=== PATIENT | female | born 1970 | race Caucasian/White ===

== ENCOUNTER 2017-04-23 17:09 | Observation (INO) | payer MEDICARE, MEDICAID ==
[~2017-04-23] VITALS: Ht 170.2 cm; Wt 73.0 kg
[~2017-04-23 17:09] MED LIST: ABILIFY 10MG TA10 MG PO; AMOXICILLIN 50500 MG PO; BUPROPION HCL150 MG PO; DEPAKOTE ER 50500 MG PO; DEPAKOTE250 MG PO; DESYREL 100MG100 MG; DSS100 MG PO; GEODON60 MG PO; MIRTAZAPINE7.5 MG PO; NORCO 325 MG-51 TAB PO; PROZAC40 MG PO; RISPERDAL2 MG PO; SEROQUEL100 MG PO; WELLBUTRIN XL300 M1 PO; ZIPRASIDONE; ZOLOFT; [UNRECOGNIZED DRUG - OTHER] PO
[2017-04-23 17:58] LABS: ADJUSTED CALCIUM 8.8 mg/dL (8.4-10.2); ALANINE AMINOTRANSFERASE 24 U/L (9-52); ALBUMIN 3.7 gm/dL (3.5-5.0); ALKALINE PHOSPHATASE 58 U/L (50-136); ANION GAP 8 mmol/L (7-16); BILIRUBIN,TOTAL 0.4 mg/dL (0.0-1.0); BLOOD UREA NITROGEN 5 mg/dL (7-17); CALCIUM 8.6 mg/dL (8.4-10.2); CARBON DIOXIDE 26 mmol/L (22-30); CHLORIDE 103 mmol/L (98-107); CREATININE, serum 0.66 mg/dL (0.52-1.25); GLUCOSE 83 mg/dL (74-106); POTASSIUM 3.7 mmol/L (3.4-5.0); SODIUM 137 mmol/L (137-145); TOTAL PROTEIN 6.5 gm/dL (6.4-8.2)
[2017-04-23 18:01] LABS: ACETAMINOPHEN < 10 ug/mL (10-30); BASO # 0.1 (0.0-0.2); BASO % 0.6 % (0.0-2.0); EOS # 0.1 (0.0-0.7); EOS % 1.4 % (0-4.0); GRAN # 5.7 (1.4-6.5); GRAN % 65.5 % (42.2-75.2); LYMPH # 2.2 (1.2-3.4); LYMPH % 25.5 % (20.0-51.0); MEAN CELL VOLUME 91 fl (80.0-100.0); MEAN CORPUSCULAR HEMOGLOBIN 31 pg (27.0-31.0); MEAN CORPUSCULAR HGB CONC 34 g/dl (33.0-37.0); MEAN PLATELET VOLUME 9.8 fl (7.4-10.4); MONO # 0.6 (0.1-0.6); MONO % 6.8 % (1.7-9.3); PLATELET COUNT 233 K/mm3 (130-400); RED BLOOD COUNT 3.89 M/mm3 (4.10-5.30); REDCELL DISTRIBUTION WIDTH-CV 13.1 % (11.5-14.5); SALICYLATE < 1.0 mg/dL; WHITE BLOOD COUNT 8.6 K/mm3 (4.8-10.8)
[2017-04-23 18:02] LABS: HEMATOCRIT 35.4 % (37.0-47.0)
[2017-04-24 03:19] LABS: AMPHETAMINE URINE NEGATIVE; BARBITURATES URINE NEGATIVE; BENZODIAZEPINES URINE NEGATIVE; BUPRENORPHINE URINE NEGATIVE; METHADONE URINE NEGATIVE; OPIATES URINE NEGATIVE; OXYCODONE URINE NEGATIVE; PHENCYCLIDINE URINE NEGATIVE; PROPOXYPHENE URINE NEGATIVE; THC CANNABINOIDS URINE NEGATIVE
[2017-04-24 08:30] VITALS: BP 134/83; PULSE 83
[2017-04-24 09:02] VITALS: BP 134/83; PULSE 83
[2017-04-25 01:29] VITALS: O2SAT 94
[2017-04-25 01:36] VITALS: BP 112/62; PULSE 85; TEMP 98.1
[2017-04-25 07:31] VITALS: BP 105/72; PULSE 78; TEMP 98
== END 2017-04-25 08:10 ==
LOC: COL.ER 17:09 → ICU 04-24 03:05
PROVIDERS: Emergency Medicine
DX: F25.0 Schizoaffective disorder, bipolar type (principal); F41.0 Panic disorder [episodic paroxysmal anxiety]
CPT/HCPCS: G0378

== ENCOUNTER 2019-06-18 11:37 | Emergency (ER) | payer MEDICARE, MEDICAID ==
[2007-02-23 18:08] VITALS: BP 109/64
[~2019-06-18] VITALS: Ht 170.2 cm; Wt 90.9 kg
[2019-06-18 12:26] LABS: BASO % 0.3 % (0.0-2.0); EOS % 0.2 % (0-4.0); GRAN # 5.6 (1.4-6.5); GRAN % 64.6 % (42.2-75.2); HEMATOCRIT 40.9 % (37.0-47.0); LYMPH # 2.3 (1.2-3.4); LYMPH % 26.2 % (20.0-51.0); MEAN CELL VOLUME 91 fl (80.0-100.0); MEAN CORPUSCULAR HEMOGLOBIN 31 pg (27.0-31.0); MEAN CORPUSCULAR HGB CONC 34 g/dl (33.0-37.0); MONO # 0.7 (0.1-0.6); MONO % 8.2 % (1.7-9.3); PLATELET COUNT 216 K/mm3 (130-400); RED BLOOD COUNT 4.52 M/mm3 (4.10-5.30); REDCELL DISTRIBUTION WIDTH-CV 12.7 % (11.5-14.5)
[2019-06-18] MEDS ORDERED: GEODON80 MG PO (12:39)
[2019-06-18] MEDS ORDERED: COGENTIN .0.5 MG/TAB PO (12:40)
[2019-06-18 12:42] LABS: ALANINE AMINOTRANSFERASE < 6 U/L (9-52); ALKALINE PHOSPHATASE 62 U/L (50-136); ANION GAP 10 mmol/L (7-16); AST,SGOT 21 U/L (15-37); BILIRUBIN,TOTAL 0.3 mg/dL (0.0-1.0); BLOOD UREA NITROGEN 13 mg/dL (7-17); CALCIUM 9.2 mg/dL (8.4-10.2); CARBON DIOXIDE 24 mmol/L (22-30); CHLORIDE 100 mmol/L (98-107); CREATININE, serum 0.77 (0.52-1.25); GLUCOSE 83 mg/dL (74-106); POTASSIUM 4.2 mmol/L (3.4-5.0); SODIUM 134 mmol/L (137-145); TOTAL PROTEIN 7.2 gm/dL (6.4-8.2)
[2019-06-18] MEDS ORDERED: WELLBUTRIN XL150 MG PO (12:43)
[2019-06-18] MEDS ORDERED: TIROSINT25 MC1 PO (12:44)
[2019-06-18 12:45] LABS: ACETAMINOPHEN < 10 ug/mL (10-30); ALCOHOL(ethanol),MEDICAL < 10 mg/dL; SALICYLATE < 1.0 mg/dL
[2019-06-18 13:43] LABS: COLLECTION METHOD CLEAN CATCH
[2019-06-18 14:02] LABS: MUCOUS Present /lpf; PH 5 (5-8); URINE APPEARANCE Hazy; URINE BACTERIA Rare /hpf; URINE BILIRUBIN Negative (NEGATIVE); URINE BLOOD Negative (NEGATIVE); URINE COLOR Straw; URINE GLUCOSE Negative (NEGATIVE); URINE KETONE Trace (NEGATIVE); URINE LEUKOCYTE ESTERASE Negative (NEGATIVE); URINE NITRATE Negative (NEGATIVE); URINE PROTEIN(semi-quant) Negative (NEGATIVE); URINE RBC 0-2 /hpf; URINE UROBILINOGEN Negative (NEGATIVE)
[2019-06-18 14:08] LABS: TRICYCLIC ANTIDEPRESS URINE NEGATIVE
[2019-06-19 13:56] VITALS: BP 110/80; PULSE 97; TEMP 97.3
== END 2019-06-19 15:45 ==
LOC: COL.ER 11:37
PROVIDERS: Emergency Medicine
DX: F20.9 Schizophrenia, unspecified (principal); F29 Unspecified psychosis not due to a substance or known physiological condition; F31.9 Bipolar disorder, unspecified; F17.210 Nicotine dependence, cigarettes, uncomplicated

== ENCOUNTER → 2020-03-31 | Outpatient (CLI) | payer MEDICARE, MEDICAID ==
[~2020-03-31] MED LIST changes: +COGENTIN .0.5 MG/TAB PO; +GEODON80 MG PO; +TIROSINT25 MC1 PO; +WELLBUTRIN XL150 MG PO
== END ==
LOC: BHSO 13:02
DX: F25.0 Schizoaffective disorder, bipolar type (principal)

== ENCOUNTER → 2020-04-26 | Outpatient (CLI) | payer MEDICARE, MEDICAID | LOC: BHSO 14:40 | DX: F25.8 Other schizoaffective disorders (principal) | CPT/HCPCS: G0463 ==

== ENCOUNTER → 2020-06-14 | Outpatient (CLI) | payer MEDICARE, MEDICAID | LOC: BHSO 13:15 | DX: F25.8 Other schizoaffective disorders (principal) | CPT/HCPCS: G0463 ==

== ENCOUNTER 2020-07-05 10:11 | Emergency (ER) | payer MEDICARE, MEDICAID ==
[2007-02-23 18:08] VITALS: BP 109/64
[~2020-07-05] VITALS: Ht 170.2 cm; Wt 85.5 kg
[2020-07-05 10:50] LABS: BASO % 0.5 % (0.0-2.0); EOS # 0.2 (0.0-0.7); EOS % 1.9 % (0-4.0); GRAN # 5.6 (1.4-6.5); GRAN % 69.5 % (42.2-75.2); HEMOGLOBIN 13.5 g/dl (12.5-16.0); LYMPH # 1.7 (1.2-3.4); MEAN CELL VOLUME 91 fl (80.0-100.0); MEAN CORPUSCULAR HEMOGLOBIN 30 pg (27.0-31.0); MEAN CORPUSCULAR HGB CONC 33 g/dl (33.0-37.0); MEAN PLATELET VOLUME 9.9 fl (7.4-10.4); MONO # 0.5 (0.1-0.6); MONO % 6.6 % (1.7-9.3); PLATELET COUNT 277 K/mm3 (130-400); RED BLOOD COUNT 4.52 M/mm3 (4.10-5.30); REDCELL DISTRIBUTION WIDTH-CV 13.5 % (11.5-14.5)
[2020-07-05 11:29] LABS: TRICYCLIC ANTIDEPRESS URINE NEGATIVE
[2020-07-05 11:37] LABS: ALANINE AMINOTRANSFERASE 22 U/L (4-34); ALBUMIN 4.4 gm/dL (3.5-5.0); ALKALINE PHOSPHATASE 79 U/L (50-136); ANION GAP 9 mmol/L (7-16); AST,SGOT 32 U/L (15-37); BILIRUBIN,TOTAL 0.4 mg/dL (0.0-1.0); BLOOD UREA NITROGEN 11 mg/dL (7-17); CALCIUM 9.4 mg/dL (8.4-10.2); CARBON DIOXIDE 29 mmol/L (22-30); CHLORIDE 104 mmol/L (98-107); CREATININE, serum 0.78 (0.52-1.25); GLUCOSE 65 mg/dL (74-106); POTASSIUM 3.9 mmol/L (3.4-5.0); SODIUM 141 mmol/L (137-145); TOTAL PROTEIN 7.4 gm/dL (6.4-8.2)
[2020-07-05 11:40] LABS: ACETAMINOPHEN < 10 ug/mL (10-30); ALCOHOL(ethanol),MEDICAL < 10 mg/dL; SALICYLATE < 1.0 mg/dL
[2020-07-05] MEDS ORDERED: DESYREL 100MG100 MG PO (20:15)
[2020-07-05] MEDS ORDERED: ATIVAN 0.50.5 MG/TAB PO (20:15)
[2020-07-05] MEDS ORDERED: LAMICTAL 100MG100 MG PO (20:16)
[2020-07-05] MEDS ORDERED: RISPERDAL2 MG PO (20:17)
[2020-07-05] MEDS ORDERED: ZYPREXA10 MG PO (20:17)
[2020-07-06 14:23] VITALS: BP 115/70; PULSE 86; TEMP 97.8
== END 2020-07-06 14:23 ==
LOC: COL.ER 10:11
PROVIDERS: Nurse Practitioner Primary Care
DX: F41.9 Anxiety disorder, unspecified (principal); F32.9 Major depressive disorder, single episode, unspecified; Z20.828 Contact with and (suspected) exposure to other viral communicable diseases; Z88.8 Allergy status to other drugs, medicaments and biological substances

== ENCOUNTER → 2020-08-02 | Outpatient (CLI) | payer MEDICARE, MEDICAID ==
[~2020-08-02] MED LIST changes: +ATIVAN 0.50.5 MG/TAB PO; +DESYREL 100MG100 MG PO; +LAMICTAL 100MG100 MG PO; +ZYPREXA10 MG PO
== END ==
LOC: BHSO 13:15
DX: F25.0 Schizoaffective disorder, bipolar type (principal)
CPT/HCPCS: G0463

== ENCOUNTER 2020-09-22 11:48 | Emergency (ER) | payer MEDICARE, MEDICAID ==
[2007-02-23 18:08] VITALS: BP 109/64
[~2020-09-22] VITALS: Ht 170.2 cm; Wt 82.7 kg
[2020-09-22 12:02] VITALS: TEMP 99
[2020-09-22 12:35] LABS: BASO % 0.3 % (0.0-2.0); EOS # 0.1 (0.0-0.7); EOS % 0.7 % (0-4.0); GRAN # 7.3 (1.4-6.5); GRAN % 74.3 % (42.2-75.2); HEMATOCRIT 41.8 % (37.0-47.0); HEMOGLOBIN 13.6 g/dl (12.5-16.0); LYMPH # 1.9 (1.2-3.4); LYMPH % 18.8 % (20.0-51.0); MEAN CELL VOLUME 92 fl (80.0-100.0); MEAN CORPUSCULAR HEMOGLOBIN 30 pg (27.0-31.0); MEAN CORPUSCULAR HGB CONC 33 g/dl (33.0-37.0); MEAN PLATELET VOLUME 9.4 fl (7.4-10.4); MONO # 0.5 (0.1-0.6); MONO % 5.5 % (1.7-9.3); PLATELET COUNT 294 K/mm3 (130-400); RED BLOOD COUNT 4.56 M/mm3 (4.10-5.30); REDCELL DISTRIBUTION WIDTH-CV 13.1 % (11.5-14.5)
[2020-09-22 12:55] LABS: ALCOHOL(ethanol),MEDICAL < 10 mg/dL
[2020-09-22 13:12] LABS: BLOOD UREA NITROGEN 8 mg/dL (7-17); CARBON DIOXIDE 30 mmol/L (22-30); CHLORIDE 103 mmol/L (98-107); CREATININE, serum 0.8 (0.52-1.25); GLUCOSE 91 mg/dL (74-106); POTASSIUM 4.1 mmol/L (3.4-5.0); SODIUM 140 mmol/L (137-145)
[2020-09-22 13:13] LABS: ALBUMIN 4.2 gm/dL (3.5-5.0); ALKALINE PHOSPHATASE 73 U/L (50-136); AST,SGOT 28 U/L (15-37); BILIRUBIN,TOTAL 0.5 mg/dL (0.0-1.0); CALCIUM 9.3 mg/dL (8.4-10.2); SALICYLATE < 1.0 mg/dL; TOTAL PROTEIN 7.4 gm/dL (6.4-8.2)
[2020-09-22 13:14] LABS: ACETAMINOPHEN < 10 ug/mL (10-30); ALANINE AMINOTRANSFERASE 11 U/L (4-34); ANION GAP 8 mmol/L (7-16)
[2020-09-22 13:31] LABS: COLLECTION METHOD CLEAN CATCH
[2020-09-22 13:39] LABS: PH 7 (5-8); SQUAMOUS EPITHELIAL 0-2 /hpf; URINE APPEARANCE Clear; URINE BACTERIA Rare /hpf; URINE BILIRUBIN Negative (NEGATIVE); URINE BLOOD Negative (NEGATIVE); URINE COLOR Straw; URINE GLUCOSE Negative (NEGATIVE); URINE KETONE Negative (NEGATIVE); URINE LEUKOCYTE ESTERASE Negative (NEGATIVE); URINE NITRATE Negative (NEGATIVE); URINE PROTEIN(semi-quant) Negative (NEGATIVE); URINE RBC 0-2 /hpf; URINE UROBILINOGEN Negative (NEGATIVE)
[2020-09-22 13:50] LABS: TRICYCLIC ANTIDEPRESS URINE NEGATIVE
[2020-09-22 16:47] VITALS: BP 119/81; PULSE 90
== END 2020-09-22 16:50 | disposition home or self-care (01) ==
LOC: COL.ER 11:48
PROVIDERS: Nurse Practitioner
DX: F25.0 Schizoaffective disorder, bipolar type (principal); F17.210 Nicotine dependence, cigarettes, uncomplicated; Z88.8 Allergy status to other drugs, medicaments and biological substances; Z20.828 Contact with and (suspected) exposure to other viral communicable diseases; Z32.02 Encounter for pregnancy test, result negative

== ENCOUNTER 2020-10-25 14:30 | Emergency (ER) | payer MEDICARE, MEDICAID ==
[2007-02-23 18:08] VITALS: BP 109/64
[~2020-10-25] VITALS: Ht 170.2 cm; Wt 81.8 kg
[2020-10-25 15:54] LABS: BASO # 0.1 (0.0-0.2); BASO % 0.6 % (0.0-2.0); EOS # 0.2 (0.0-0.7); EOS % 1.6 % (0-4.0); GRAN # 6.1 (1.4-6.5); GRAN % 65.8 % (42.2-75.2); HEMATOCRIT 39.2 % (37.0-47.0); HEMOGLOBIN 12.6 g/dl (12.5-16.0); LYMPH # 2.4 (1.2-3.4); LYMPH % 25.2 % (20.0-51.0); MEAN CELL VOLUME 93 fl (80.0-100.0); MEAN CORPUSCULAR HEMOGLOBIN 30 pg (27.0-31.0); MEAN CORPUSCULAR HGB CONC 32 g/dl (33.0-37.0); MEAN PLATELET VOLUME 9.3 fl (7.4-10.4); MONO # 0.6 (0.1-0.6); MONO % 6.3 % (1.7-9.3); PLATELET COUNT 254 K/mm3 (130-400); RED BLOOD COUNT 4.23 M/mm3 (4.10-5.30); REDCELL DISTRIBUTION WIDTH-CV 12.5 % (11.5-14.5)
[2020-10-25 16:03] LABS: ALANINE AMINOTRANSFERASE 17 U/L (4-34); ALBUMIN 4.2 gm/dL (3.5-5.0); ALKALINE PHOSPHATASE 68 U/L (50-136); ANION GAP 7 mmol/L (7-16); AST,SGOT 22 U/L (15-37); BILIRUBIN,TOTAL 0.2 mg/dL (0.0-1.0); BLOOD UREA NITROGEN 9 mg/dL (7-17); CALCIUM 9.1 mg/dL (8.4-10.2); CARBON DIOXIDE 30 mmol/L (22-30); CHLORIDE 99 mmol/L (98-107); CREATININE, serum 0.77 (0.52-1.25); GLUCOSE 143 mg/dL (74-106); SODIUM 136 mmol/L (137-145); TOTAL PROTEIN 7.4 gm/dL (6.4-8.2)
[2020-10-25 16:07] LABS: ACETAMINOPHEN < 10 ug/mL (10-30); ALCOHOL(ethanol),MEDICAL < 10 mg/dL; SALICYLATE < 1.0 mg/dL
[2020-10-25 18:03] LABS: COLLECTION METHOD CLEAN CATCH
[2020-10-25 18:20] LABS: PH 6 (5-8); SQUAMOUS EPITHELIAL 0-2 /hpf; URINE APPEARANCE Clear; URINE BACTERIA None Seen /hpf; URINE BILIRUBIN Negative (NEGATIVE); URINE BLOOD Negative (NEGATIVE); URINE COLOR Colorless; URINE GLUCOSE Negative (NEGATIVE); URINE KETONE Negative (NEGATIVE); URINE LEUKOCYTE ESTERASE Negative (NEGATIVE); URINE NITRATE Negative (NEGATIVE); URINE PROTEIN(semi-quant) Negative (NEGATIVE); URINE RBC 0-2 /hpf; URINE UROBILINOGEN Negative (NEGATIVE)
[2020-10-25 19:30] LABS: TRICYCLIC ANTIDEPRESS URINE NEGATIVE
[2020-10-25] MEDS ORDERED: DEPAKOTE ER 50500 MG PO (19:31)
[2020-10-25] MEDS ORDERED: SYNTHROID 0.0.025 MG PO (19:32)
[2020-10-25] MEDS ORDERED: ZOLOFT 50MG50 MG PO (19:34)
[2020-10-25] MEDS ORDERED: HALDOL 5MG T5 MG/TAB PO (19:36)
[2020-10-25] MEDS ORDERED: KLONOPIN 1MG1 MG PO (19:37)
[2020-10-25] MEDS ORDERED: ARICEPT 5MG PO (20:33)
[2020-10-26 10:55] VITALS: TEMP 98.4
[2020-10-26 14:50] VITALS: BP 142/82; PULSE 62
== END 2020-10-26 15:00 ==
LOC: COL.ER 14:30
PROVIDERS: Family Medicine
DX: F20.9 Schizophrenia, unspecified (principal); F31.9 Bipolar disorder, unspecified; F17.200 Nicotine dependence, unspecified, uncomplicated; Z20.822 Contact with and (suspected) exposure to COVID-19; Z88.8 Allergy status to other drugs, medicaments and biological substances; Z79.890 Hormone replacement therapy

== ENCOUNTER 2020-12-05 03:05 | Emergency (ER) | payer MEDICARE, MEDICAID ==
[2007-02-23 18:08] VITALS: BP 109/64
[~2020-12-05] VITALS: Ht 170.2 cm; Wt 81.8 kg
[~2020-12-05 03:05] MED LIST changes: +ARICEPT 5MG PO; +HALDOL 5MG T5 MG/TAB PO; +KLONOPIN 1MG1 MG PO; +SYNTHROID 0.0.025 MG PO; +ZOLOFT 50MG50 MG PO
[2020-12-05 04:09] LABS: COLLECTION METHOD CLEAN CATCH
[2020-12-05 04:12] LABS: BASO # 0.1 (0.0-0.2); BASO % 0.5 % (0.0-2.0); EOS # 0.3 (0.0-0.7); EOS % 2.8 % (0-4.0); GRAN # 6.8 (1.4-6.5); GRAN % 66.8 % (42.2-75.2); HEMATOCRIT 38.4 % (37.0-47.0); HEMOGLOBIN 12.6 g/dl (12.5-16.0); LYMPH # 2.2 (1.2-3.4); MEAN CELL VOLUME 92 fl (80.0-100.0); MEAN CORPUSCULAR HEMOGLOBIN 30 pg (27.0-31.0); MEAN CORPUSCULAR HGB CONC 33 g/dl (33.0-37.0); MEAN PLATELET VOLUME 9.4 fl (7.4-10.4); MONO # 0.8 (0.1-0.6); MONO % 7.5 % (1.7-9.3); PLATELET COUNT 309 K/mm3 (130-400); RED BLOOD COUNT 4.19 M/mm3 (4.10-5.30); REDCELL DISTRIBUTION WIDTH-CV 13.3 % (11.5-14.5)
[2020-12-05 04:16] LABS: PH 5 (5-8); SQUAMOUS EPITHELIAL 0-2 /hpf; URINE APPEARANCE Clear; URINE BACTERIA Rare /hpf; URINE BILIRUBIN Negative (NEGATIVE); URINE BLOOD Negative (NEGATIVE); URINE COLOR Straw; URINE GLUCOSE Negative (NEGATIVE); URINE KETONE Negative (NEGATIVE); URINE LEUKOCYTE ESTERASE Negative (NEGATIVE); URINE NITRATE Negative (NEGATIVE); URINE PROTEIN(semi-quant) Negative (NEGATIVE); URINE RBC None Seen /hpf; URINE UROBILINOGEN Negative (NEGATIVE)
[2020-12-05 04:21] LABS: TRICYCLIC ANTIDEPRESS URINE NEGATIVE
[2020-12-05 04:23] LABS: ALANINE AMINOTRANSFERASE 43 U/L (4-34); ALKALINE PHOSPHATASE 89 U/L (50-136); ANION GAP 7 mmol/L (7-16); AST,SGOT 65 U/L (15-37); BILIRUBIN,TOTAL 0.2 mg/dL (0.0-1.0); BLOOD UREA NITROGEN 6 mg/dL (7-17); CALCIUM 9.2 mg/dL (8.4-10.2); CARBON DIOXIDE 30 mmol/L (22-30); CHLORIDE 103 mmol/L (98-107); CREATININE, serum 0.78 (0.52-1.25); GLUCOSE 99 mg/dL (74-106); POTASSIUM 3.7 mmol/L (3.4-5.0); SODIUM 140 mmol/L (137-145)
[2020-12-05 04:24] LABS: ACETAMINOPHEN < 10 ug/mL (10-30); ALCOHOL(ethanol),MEDICAL < 10 mg/dL; SALICYLATE < 1.0 mg/dL
[2020-12-06 13:47] VITALS: BP 125/73; PULSE 88; TEMP 97.4
== END 2020-12-06 13:51 ==
LOC: COL.ER 03:05
PROVIDERS: Emergency Medicine
DX: F25.9 Schizoaffective disorder, unspecified (principal); Z20.822 Contact with and (suspected) exposure to COVID-19; Z88.8 Allergy status to other drugs, medicaments and biological substances; Z79.899 Other long term (current) drug therapy